=== PATIENT | female | born 1940 | race Caucasian/White ===

== ENCOUNTER 2016-09-27 10:19 | Outpatient (CLI) ==
[2016-04-13 01:24] VITALS: BMI 34.5
[2016-09-27 10:48] LABS: BILIRUBIN,URINE Negative (NEGATIVE); KETONES,URINE Negative (NEGATIVE); LEUKOCYTE ESTERASE ,URINE 2+ (NEGATIVE); NITRITE,URINE Negative (NEGATIVE); PROTEIN,URINE Negative (NEGATIVE); URINE, BLOOD Trace-intact (NEGATIVE)
[2016-09-27 10:50] LABS: ADD URINE MICROSCOPIC YES
[2016-09-27 10:51] LABS: BACTERIA,URINE TRACE (NOT PRESENT)
== END 2016-09-27 10:20 | disposition home or self-care (01) ==
LOC: LAB 10:19
PROVIDERS: ATTEND Nurse Practitioner Family
DX: R30.0 Dysuria (principal)
CPT/HCPCS: 81001; 87086

== ENCOUNTER 2016-10-27 12:28 | Outpatient (CLI) ==
[2016-04-13 01:24] VITALS: BMI 34.5
[2016-10-27 14:48] LABS: ALBUMIN 3.5 g/dL (3.4-5.0); ANION GAP 12.9; BUN/CREATININE RATIO 18.88; CALCIUM 9.3 mg/dL (8.2-10.2); CREATININE 0.9 mg/dL (0.60-1.30); PHOSPHORUS 4.1 mg/dL (2.8-4.1); POTASSIUM 3.9 mmol/L (3.5-5.10)
== END 2016-10-27 12:29 | disposition home or self-care (01) ==
LOC: LAB 12:28
PROVIDERS: ATTEND General Practice
DX: I10 Essential (primary) hypertension (principal); L03.039 Cellulitis of unspecified toe; Z79.899 Other long term (current) drug therapy
CPT/HCPCS: 36415; 80069; 87070

== ENCOUNTER 2017-06-19 16:07 | Outpatient (CLI) ==
[2016-04-13 01:24] VITALS: BMI 34.5
[2017-06-19 16:20] LABS: BILIRUBIN,URINE Negative (NEGATIVE); KETONES,URINE Negative (NEGATIVE); LEUKOCYTE ESTERASE ,URINE 3+ (NEGATIVE); NITRITE,URINE Negative (NEGATIVE); PROTEIN,URINE Negative (NEGATIVE); URINE, BLOOD 2+ (NEGATIVE)
[2017-06-19 16:25] LABS: ADD URINE MICROSCOPIC YES
[2017-06-19 16:28] LABS: BACTERIA,URINE 1+ (NOT PRESENT)
== END 2017-06-19 16:08 | disposition home or self-care (01) ==
LOC: LAB 16:07
PROVIDERS: ATTEND Nurse Practitioner Family
DX: R39.15 Urgency of urination (principal); R30.9 Painful micturition, unspecified; N39.0 Urinary tract infection, site not specified
CPT/HCPCS: 81001; 87086

== ENCOUNTER 2017-08-29 12:37 | Outpatient (CLI) ==
[2016-04-13 01:24] VITALS: BMI 34.5
[2017-08-29 13:04] LABS: BILIRUBIN,URINE Negative (NEGATIVE); KETONES,URINE Negative (NEGATIVE); LEUKOCYTE ESTERASE ,URINE 3+ (NEGATIVE); NITRITE,URINE Negative (NEGATIVE); PH,URINE 5.5 (5-9); PROTEIN,URINE Negative (NEGATIVE); URINE, BLOOD 2+ (NEGATIVE)
[2017-08-29 13:06] LABS: ADD URINE MICROSCOPIC YES
[2017-08-29 13:44] LABS: BACTERIA,URINE TRACE (NOT PRESENT)
== END 2017-08-29 12:38 | disposition home or self-care (01) ==
LOC: LAB 12:37
PROVIDERS: ATTEND Nurse Practitioner Family
DX: R35.0 Frequency of micturition (principal)
CPT/HCPCS: 81001; 87086

== ENCOUNTER 2017-10-03 16:00 | Outpatient (CLI) ==
[2016-04-13 01:24] VITALS: BMI 34.5
== END 2017-10-03 16:01 | disposition home or self-care (01) ==
LOC: LAB 16:00
PROVIDERS: ATTEND Nurse Practitioner Family
DX: R05 Cough (principal); R50.9 Fever, unspecified
CPT/HCPCS: 87651; 87804

== ENCOUNTER 2017-11-04 13:49 | Emergency (ER) | payer OTHER ==
[2017-11-04 14:03] VITALS: TEMP 101.1; BMI 37.2
[2017-11-04] MEDS ORDERED: DECADRON 4 MG/ML SDV IM STA (14:10)
[2017-11-04] MEDS ORDERED: DUONEB NEB STA ×2 (14:10→15:10)
--- NOTE | 2017-11-04 14:32 | CT ---
EXAM: CT chest without contrast HISTORY: Respiratory complaint, dry cough for 2 days TECHNIQUE: Multi-slice transaxial helical with coronal and sagittal reformed images CONTRAST: None COMPARISON: None FINDINGS: A right internal jugular venous access port catheter is in place. A right mastectomy and r ight axillary elsie dissection have been performed in the past. A right thyroidectomy has been perfo rmed in the past. Left thyroid lobe is mildly enlarged. Sub centimeter lymph nodes are noted in the precarinal region. No suspicious lymphadenopathy detected. The aorta is atherosclerotic with sherin l caliber. The heart is mildly enlarged. No pericardial or pleural effusions are appreciated. No a cute consolidation is appreciated. Respiratory motion artifact obscures some details. No pulmonary nodules or masses are appreciated. A calcified granuloma is noted in the right lower lobe. A simple cyst is detected at the interpolar region to superior polar region of the left kidney. The solid abdominal organs are otherwise normal in their visualized portions of the upper abdomen. The g allbladder is present without biliary dilatation. Small third portion of the duodenum diverticula ar e noted. The bones are free of suspicious osteolytic or osteoblastic lesions. IMPRESSION: 1. No acute cardiopulmonary disease. 2. Previous right mastectomy and axillary elsie dissection. 3. Mild cardiomegaly. 4. No lymphadenopathy or suspicious nodules/masses. 5. Simple cyst, left kidney. 6. Duodenal diverticulosis
--- NOTE | 2017-11-04 15:11 | ED.PDOC ---
General ED Provider: Dr. LILLY PENNINGTON Chief Complaint: Respiratory Complaint Stated Complaint: flu like symp Time Seen by Physician: 14:00 (has been on antibiotics with no help) Mode of Arrival: Walk-In Information Source: Patient Exam Limitations: No limitations [facility] and Triage Documentation Reviewed and Agree: Yes Reviewed sepsis parameters & appropriate labs ordered?: Yes System Inflammatory Response Syndrome: Not Applicable Sepsis Protocol: For patient's 13 years and over: Temp is 96.8 and below OR 101 and greater Pulse >90 BPM Resp >20/minute Acutely Altered Mental Status Are patient's symptoms suggestive of a new infection, such as: -Pneumonia -Skin, Soft Tissue -Endocarditis -UTI -Bone, Joint Infection -Implantable Device -Acute Abdominal Infection -Wound Infection -Meningitis -Blood Stream Catheter Infection -Unknown System Inflammatory Response Syndrome: Not Applicable Respiratory Complaint Exam - Respiratory Complaint/Exam Onset/Duration: weeks but worse past 2 days Symptoms Are: Still present Timing: Intermittent Initial Severity: Moderate Current Severity: Moderate Location: Nose, Throat, Chest Character: Reports: Non-productive cough Aggravating: Reports: None Alleviating: Reports: Bronchodilators Associated Signs and Symptoms: Reports: URI, Nasal congestion Related History: Reports: Similar episode History of Healthcare-Acquired Pneumonia: No Related Surgical History: Reports: None Pulmonary Embolism Risk Factors: None Cardiac Risk Factors: Reports: None Pseudomonas Risk Factors: Reports: None Tuberculosis Risk Factors: Reports: None Status Asthmaticus Risk Factors: Reports: None Home Oxygen Use: No Recent Stress Test: No Recent Echo/LV Function: No Current Antibiotic Use: No Current Asthma Medication Use: No Respiratory Distress: None Inadequate Respiratory Effort: No Dysphagia Present: No Stridor Present: No JVD Present: No Accessory Muscle Use: No Retractions: Not Present Diminished Breath Sounds: Yes Sinus Tenderness: None Grunting Respirations: No Kussmaul Respirations: No Differential Diagnoses: Pneumonia, Bronchitis, URI, Influenza Review of Systems - Review Of Systems Constitutional: Reports: No symptoms Eyes: Reports: No symptoms Ears, Nose, Mouth, Throat: Reports: No symptoms Respiratory: Reports: Cough, Wheezing Cardiac: Reports: No symptoms GI: Reports: No symptoms : Reports: No symptoms Musculoskeletal: Reports: No symptoms Skin: Reports: No symptoms Neurological: Reports: No symptoms Endocrine: Reports: No symptoms Hematologic/Lymphatic: Reports: No symptoms All Other Systems: Reviewed and Negative Past Medical History - Past Medical History Previously Healthy: Yes Endocrine: Reports: None Cardiovascular: Reports: None Respiratory: Reports: None Hematological: Reports: None Gastrointestinal: Reports: None Genitourinary: Reports: None Neuro/Psych: Reports: None Musculoskeletal: Reports: Arthritis Cancer: Reports: None Last Menstrual Period: menopause - Surgical History General Surgical History: Reports: None - Family History Family History: Reports: Unknown - Social History Smoking Status: Never smoker Hx Substance Use: No Alcohol Screening: None - Immunizations Tetanus Shot up to Date: Yes Physical Exam - Physical Exam Appearance: Ill-appearing Ill-appearing: Mild Pain Distress: Mild Eyes: MARZENA, EOMI, Conjunctiva clear ENT: Ears normal, Nose normal, Oropharynx normal Respiratory: Rhonchi, Wheezes Cardiovascular: RRR, Pulses normal, No rub, No murmur GI/: Soft, Nontender, No masses, Bowel sounds normal, No Organomegaly Musculoskeletal: Normal strength, ROM intact, No edema, No calf tenderness Skin: Warm, Dry, Normal color Neurological: Sensation intact, Motor intact, Reflexes intact, Cranial nerves intact, Alert, Oriented Psychiatric: Affect appropriate, Mood appropriate Interpretation - Radiology Interpretation Radiology Interpretation By: Radiologist Radiology Results: No acute changes Exam Interpreted: CT Scan Critical Care Note - Critical Care Note Total Time (mins): 0 Course - Course Orders, Labs, Meds: Orders Category Date Time Status NEBULIZER TREATMENT Stat CARDIO 11/04/17 14:10 Completed FLU A/B MOLECULAR Stat LAB 11/04/17 14:30 Received MOLECULAR GROUP A STREP Stat LAB 11/04/17 14:30 Completed Dexamethasone 4 mg/ml Inj [Decadron 4 mg/ml Sdv] MEDS 11/04/17 14:10 Discontinued 4 mg IM ONCE STA Ipratropium/Albuterol Neb [Duoneb] MEDS 11/04/17 14:10 Discontinued 1 vial NEB ONCE STA CT CHEST W/O CONTRAST Stat RADS 11/04/17 14:09 Completed Medications Discontinued Medications Generic Name Dose Route Start Last Admin Trade Name Freq PRN Reason Stop Dose Admin Albuterol/Ipratropium 1 vial 11/04/17 14:10 11/04/17 14:20 Duoneb NEB 11/04/17 14:11 1 vial ONCE STA Administration Dexamethasone Sodium Phosphate 4 mg 11/04/17 14:10 11/04/17 14:48 Decadron 4 Mg/Ml Sdv IM 11/04/17 14:11 4 mg ONCE STA Administration Vital Signs: Temp Pulse Resp BP Pulse Ox 11/04/17 13:57 101.1 F H 85 20 191/79 H 93 L Departure - Departure Time of Disposition: 16:00 Disposition: HOME SELF-CARE Discharge Problem: Viral syndrome Instructions: Viral Syndrome (ED) Condition: Good Pt referred to PMD for follow-up: Yes IPMP verified?: Yes Additional Instructions: Please call your Family Physician as soon as possible to schedule a follow-up appointment. Allergies/Adverse Reactions: Allergies No Known Allergies Allergy (Unverified 06/19/17 13:23) Home Medications: Ambulatory Orders Diphenhydramine HCl [Benadryl Allergy] 25 mg PO DAILY PRN 04/13/16 Naproxen Sodium [Aleve] 220 mg PO DAILY PRN 04/13/16 Sodium Chloride [[place]] 45 ml NS BEDTIME spray 06/05/16 Glutamine [L-Glutamine] 500 mg PO DAILY 09/14/16 Omeprazole 40 mg PO DAILY 09/14/16 Ondansetron HCl [Zofran] 4 mg PO Q6HR PRN 09/14/16 Anastrozole 1 mg PO DAILY #30 tab-cap 01/26/17 Gabapentin 300 mg PO BID #60 tab-cap 01/26/17 Acetaminophen [Tylenol] 325 mg PO PRN 05/29/17 Compazine 10 mg PO PRN PRN 05/29/17 Diphenoxylate HCl/Atropine [Lomotil 2.5-0.025 Mg Tablet] 1 each PO PRN 05/29/17 Furosemide 20 mg PO d 05/29/17
[2017-11-04 15:43] VITALS: BP 146/65
== END 2017-11-04 15:47 | disposition home or self-care (01) ==
LOC: ED 13:49
DX: B34.9 Viral infection, unspecified (principal); R05 Cough; Z79.899 Other long term (current) drug therapy
CPT/HCPCS: 87502; 87651; 94640; 96372; 99283

== ENCOUNTER 2018-04-23 10:23 | Outpatient (CLI) | END 2018-04-23 10:24 | disposition home or self-care (01) | LOC: RHC-LAB 10:23 | PROVIDERS: ATTEND Nurse Practitioner Family | DX: I10 Essential (primary) hypertension (principal) | CPT/HCPCS: 36415; 80053; 80061; 84443; 85025 ==

== ENCOUNTER 2018-10-22 08:03 | Outpatient (CLI) | payer OTHER | END 2018-10-22 08:04 | disposition home or self-care (01) | LOC: RHC-LAB 08:03 | PROVIDERS: ATTEND Nurse Practitioner Family | DX: I10 Essential (primary) hypertension (principal) | CPT/HCPCS: 36415; 80053; 80061; 85025 ==

== ENCOUNTER 2019-05-19 15:54 | Outpatient (CLI) | END 2019-05-19 15:55 | disposition home or self-care (01) | LOC: RHC-LAB 15:54 | PROVIDERS: ATTEND Nurse Practitioner Family | DX: R31.9 Hematuria, unspecified (principal) | CPT/HCPCS: 81001; 87086 ==